=== PATIENT | male | born 1950 | race Caucasian/White ===

== ENCOUNTER → 2023-07-17 09:44 | Outpatient (REF) | payer OTHER, SELFPAY | LOC: MRI 3T 09:44 | PROVIDERS: ATTENDING PHYSICIAN Specialist; FAMILY PHYSICIAN Internal Medicine | DX: R97.20 Elevated prostate specific antigen [PSA] (principal) | CPT/HCPCS: 72197; A9575 ==

== ENCOUNTER 2023-12-23 06:17 | Inpatient (IN) | payer OTHER, SELFPAY ==
[2023-12-23] VITALS (26 sets, daily range): BP systolic 120–162; BP diastolic 63–138; BMI 25.1; BMI 24.9
[2023-12-23] MEDS: ATIVAN 1 MG IV ×5 (04:09→12:48)
[2023-12-23] MEDS: THIAMINE INJECTION 200 MG IV ×3 (04:09→16:12)
[2023-12-23] MEDS: NSS 1000 IV (04:10)
[2023-12-23 04:12] LABS: Venous Blood Gas B.E. -10.1 mmol/L (-4 to +4); Venous Blood Gas HCO3 12.4 mmol/L (22-27); Venous Blood Gas O2 Sat % 99.8 %; Venous Blood Gas pCO2 20 mmHg (35-48); Venous Blood Gas pO2 158 mmHg (30-50)
[2023-12-23 04:14] LABS: Venous Blood Gas O2 Therapy 2L
[2023-12-23 04:19] LABS: % Basophils 0.6 % (0-2); % Eosinophils 0.1 % (0-6); % Immature Granulocytes 0.3 % (0-0.5); % Lymphocytes 19.1 % (20.5-51.1); % Monocytes 10.2 % (1.7-9.3); % Neutrophils 69.7 % (42.2-75.2); Absolute Basophils 0.1 10^3/uL (0-0.2); Absolute Lymphocytes 2.1 10^3/uL (1.2-3.4); Absolute Monocytes 1.1 10^3/uL (0.1-0.6); Absolute Neutrophils 7.7 10^3/uL (1.4-6.5); Hematocrit 35.2 % (39.0-52.0); Hemoglobin 12.6 g/dL (13.0-18.0); Mean Corp Hgb Conc. 35.8 g/dL (33.0-37.0); Mean Corpuscular Volume 86.5 fL (80.0-94.0); Mean Platelet Volume 9.1 fL (7.4-10.4); Nucleated Red Blood Cells % 0 % (-); Platelet Count 195 10^3/uL (130-400); Red Blood Cell Count 4.07 10^6/uL (4.70-6.10); Red Cell Dist. Width 18.1 % (11.5-14.5); White Blood Cell Count 11.1 10^3/uL (4.8-10.8)
[2023-12-23 04:25] LABS: INR 1.24; PT 15.5 Sec (11.4-14.6)
--- NOTE | 2023-12-23 04:31 | ED.GENMED ---
History of Present Illness
General
Chief Complaint: Alcohol Problem
Time Seen by Provider: 12/23/23 03:50
History of Present Illness
History of Present Illness:
73-year-old male with history of alcohol abuse presenting to the emergency department for concern of alcohol withdrawal. Patient reports that he has been struggling with alcohol abuse, and decided to stop drinking on Friday, 3 days ago.
Yesterday he did drink some mouthwash,, however has otherwise not had any alcohol. He has since had a lot of tremulousness, nausea, anxiousness. He has not been eating and has had occultly tolerating food and liquid by mouth. Denies chest pain or
difficulty breathing. Denies fever. Denies SI or HI. Denies inpatient treatment for alcoholism in the past. Denies vomiting or hallucinations. Denies additional acute medical complaints
Past History
Past History
ED Past Medical History: Hypercholesterolemia and Other (Diverticulitis)
ED Past Surgical History: Other (Hernia repair)
Social History
Tobacco: Non-smoker
Alcohol: Daily
Drug: None
Personal:
Living: with family
Employment: Employed
Family History
Family History: Other (kidney stones)
Phy Exam
Physical Exam
Physical Exam:
General: Anxious
HEENT: protecting airway
Neck: appears supple
CV: Tachycardic, regular rhythm, no evidence of cyanosis
Resp: No accessory muscle use, no increased work of breathing, lungs clear to auscultation bilaterally
Abd: Soft and non-distended, no tenderness to palpation
Extremities: No deformities, no swelling, no erythema
Neuro: alert, no focal neurologic deficit. Tremulous
: deferred
Rectal: deferred
Psych: Normal affect
Skin: Intact
Scores
Withdrawal Assessment of Alcohol
Withdrawal Assessment Completed?: Yes
Nausea and Vomiting: Mild nausea with no vomiting
Tactile Disturbances: None
Tremor: Severe, even with arms not extended
Auditory Disturbances: Not present
Paroxysmal Sweats: Beads of sweat obvious on forehead
Visual Disturbances: Not present
Anxiety: Moderately anxious, or guarded, so anxiety is inferred
Headache, Fullness in Head: Not present
Agitation: Moderately fidgety and restless
Orientation and clouding of sensorium: Oriented and can do serial additions
Total CIWA Score: 20
Alcohol Withdrawal Medication Recommendation: Equal to MSAS >11. Lorazepam 2-4mg IV NOW and re-assess q1hr
Course
Orders/Labs/Results
Orders:
Orders
12/23/23 04:01
Urinalysis Reflex To Culture Urgent
Date Specimen was Collected: 12/23/23
Time Specimen was Collected: 04:21
Urine Drug Abuse Screen Urgent
Date Specimen was Collected: 12/23/23
Time Specimen was Collected: 04:21
Thiamine Injection 200 mg IV NOW STA
12/23/23 04:02
Lorazepam [Ativan] 1 mg IV NOW STA
12/23/23 04:03
0.9% Sodium Chloride 1000 ml [Nss] 1,000 ml IV BOLUS
12/23/23 04:06
Alcohol Urgent
Complete Blood Count/With Diff Urgent
Comprehensive Metabolic Panel Urgent
Magnesium Urgent
Phosphorus Urgent
Prothrombin Time Urgent
Venous Blood Gas Urgent
%Oxygen/Room Air: 21
12/23/23 05:08
FOLic ACID [Folvite] 1 mg 0.9% Sodium Chloride 50 ml [Nss] 50 ml IV NOW
Abnormal Lab Results
12/23/23
04:06
WBC 11.1 H 10^3/uL
(4.8-10.8)
RBC 4.07 L 10^6/uL
(4.70-6.10)
Hgb 12.6 L g/dL
(13.0-18.0)
Hct 35.2 L %
(39.0-52.0)
RDW 18.1 H %
(11.5-14.5)
Absolute Neuts (auto) 7.7 H 10^3/uL
(1.4-6.5)
Absolute Monos (auto) 1.1 H 10^3/uL
(0.1-0.6)
Lymphocytes % 19.1 L %
(20.5-51.1)
Monocytes % 10.2 H %
(1.7-9.3)
PT 15.5 H Sec
(11.4-14.6)
VBG pCO2 20 L mmHg
(35-48)
VBG pO2 158 H mmHg
(30-50)
VBG HCO3 12.4 L mmol/L
(22-27)
Carbon Dioxide 9 L* mmol/L
(22-30)
Glucose 141 H mg/dl
(70-99)
Magnesium 1.4 L mg/dl
(1.6-2.3)
12/23/23 04:06
12/23/23 04:06
Vital Signs
Initial and Last Documented VS:
Initial Vital Signs
Temp Pulse Resp BP Pulse Ox
98.9 F 125 28 162/90 95
12/23/23 03:51 12/23/23 03:51 12/23/23 03:51 12/23/23 03:51 12/23/23 03:51
Last Documented Vital Signs
Temp Pulse Resp BP Pulse Ox
98.9 F 109 28 162/90 98
12/23/23 03:51 12/23/23 04:01 12/23/23 04:01 12/23/23 04:01 12/23/23 04:01
MDM/Problems Addressed
MDM/Problems Addressed:
73-year-old male with history of alcohol abuse presenting for concern of alcohol withdrawal. Vital signs on arrival significant for tachycardia and hypertension.
On exam, patient is in no acute distress, however appears very anxious, tremulous, shaky. Symptoms appear consistent with alcohol withdrawal. Patient admits to some mouthwash yesterday, however reports low volume. Lower suspicion for significant
toxic alcohol ingestion. Patient denies any SI or HI. CIWA score is 20 indicating acute alcohol withdrawal. Will obtain laboratory analysis and administer thiamine, folate, IV fluids. Will administer IV benzodiazepines and reassess for
improvement
05:10 -on reassessment, patient is slightly improved, however remains tremulous. Labs relatively unremarkable. Feel patient warrants admission for alcohol withdrawal. Will redose Ativan. Patient agreeable to staying.
*Critical Care Note
Total Time (30-74mins, 75-104mins- exclusive of procedures): Not Applicable
ED Attending Note
-
Portions of this chart may have been created with voice recognition software.� Occasional wrong word or��sound alike� substitutions may have occurred due to the inherent limitations of voice recognition software.
Discharge Plan
Departure
Prescriptions:
No Action
aspirin 81 MG tablet,delayed release (DR/EC)
81 mg PO DAILY
multivitamin with folic acid [Tab-A-Alexa] 1 TABLET tablet
1 tab PO DAILY
Patient Comments:
simvastatin [Zocor] 40 mg Tablet
40 mg PO DAILY
sertraline 50 mg Tablet
50 mg PO DAILY
Referrals:
Ehsan Yi MD [Family Provider] -
Interventions
Interventions:
*Risk Screen - Suicide Last Done: 12/23/23 03:51
*General Assessment Last Done: 12/23/23 03:51
*Neglect/Abuse Screening Last Done: 12/23/23 03:51
ED- Fall Risk Assessment Last Done: 12/23/23 04:22
*ED COVID-19 Vaccine History Last Done: 12/23/23 03:51
ED- Neurological Assessment Last Done: 12/23/23 04:22
ED-Psychological Assessment Last Done: 12/23/23 04:22
Discharge Date and Time
Print Language: MALAY
[2023-12-23 04:49] LABS: ALT (SGPT) 30 U/L (0-50); AST (SGOT) 52 U/L (17-59); Albumin 4.5 g/dl (3.5-5.0); Alcohol 58 mg/dl; Alkaline Phosphatase 75 U/L (38-126); Blood Urea Nitrogen 12 mg/dl (9-20); Calcium 9.3 mg/dl (8.4-10.2); Carbon Dioxide 9 mmol/L (22-30); Chloride 107 mmol/L (98-107); Estimated Creatinine Clearance 91 ml/min; Glucose 141 mg/dl (70-99); Magnesium 1.4 mg/dl (1.6-2.3); Phosphorus 3.7 mg/dl (2.5-4.5); Potassium 3.5 mmol/L (3.5-5.1); Sodium 143 mmol/L (135-145); Total Protein 7.1 g/dl (6.3-8.2); eGFR > 60.00
[2023-12-23] MEDS: FOLVITE 50.2 MG IV (05:20)
--- NOTE | 2023-12-23 06:07 | HPS.HSE ---
Family Physician
-
Family Physician: Ehsan Yi
Chief Complaint
-
Nausea, Jittery
History of Present Illness
Patient is a 73y M with PMH significant for GERD and depression who presents to ED complaining of nausea and feeling jittery after drinking aftershave this evening. Patient states that he has a long history of alcohol overuse and cites multiple
interpersonal stressors as contributing to this. He notes that he typically drinks about 1 pint of liquor per day. His last drink of standard alcohol was reportedly on Friday. He had no alcohol Friday and most of Friday. Patient states that he
had a visit with one of his son's this evening that was stressful and upsetting. He was having trouble sleeping following this, and drank a small bottle of aftershave in an attempt to settle his nerves and get to sleep. He did not sleep and, in
fact, began to be quite concerned about the effects of the aftershave.
He felt nauseated but did not have emesis. He presented to the ED for further evaluation.
Patient is anxious and restless here in the ED.
He denies any other significant medical issues.
Medical History
Past Medical History
Past Medical History: Reports Other
Additional Past Medical History:
GERD
Depression / Anxiety
Prostatic Intraepithelial Neoplasia III
Dyslipidemia
Past Surgical History: Reports Other
Additional Past Surgical History:
Prostate Biopsy x 3
Hernia Repair
T&A
Social History
Tobacco: Vaping (Daily vape use. Prior cigarettes - quit cigarettes 12 years ago.)
Alcohol: Daily (1 pint of liquor daily. )
Drug: None
Family History
Family History: Not pertinent
Allergies / Home Medications
Allergies reflects when Allergies were last updated in [facility].
Home Medications with original date entered in [facility]
Allergy/Medication List:
Allergies
Allergy/AdvReac Type Severity Reaction Status Date / Time
No Known Allergies Allergy Verified 12/23/23 04:02
Home Medications
aspirin 81 mg tablet,delayed release 81 mg PO DAILY 08/02/10
multivitamin with folic acid 400 mcg tablet (Tab-A-Alexa) 1 tab PO DAILY 08/02/10
simvastatin 40 mg tablet (Zocor) 40 mg PO DAILY 06/11/22
Review of Systems
-
History Source: Patient
A 12 point ROS was completed and negative except as noted: Yes
Constitutional: Reports Fatigue; Denies Fever or Chills
EENT: Denies Sore Throat
Respiratory: Denies Cough or Trouble Breathing
Cardiac: Denies Chest Pain or Palpitations
Abdomen/GI: Reports Nausea and Anorexia; Denies Abdominal Pain, Vomiting or Diarrhea
: Denies Dysuria, Frequency or Flank Pain
Musculoskeletal: Denies Joint Pain or Edema
Neurological: Denies Dizzy or Headache
Psych: Reports Depression and Anxiety
Physical Exam
Vital Signs
Vital Signs
Temp Pulse Resp BP Pulse Ox
98.9 F 109 28 162/90 98
12/23/23 03:51 12/23/23 04:01 12/23/23 04:01 12/23/23 04:01 12/23/23 04:01
Physical Exam
General: Other (73y M somewhat restless / anxious in the ED.)
HEENT: Moist mucous membranes, PERRLA and Other (Pos horizontal nystagmus.)
Respiratory: Other (Scattered squeaks and wheezes. No focal rhonchi.)
Cardiac: S1/S2, Tachycardia and Murmur (II/ SMILEY)
GI: Soft, Non Tender, Non Distended and Normal Bowel Sounds
Musculoskeletal: No Clubbing, No Cyanosis and No Edema
Neuro: AO x 3 and Other (Mildly tremulous.)
Psych: Anxious
Laboratory Results
-
12/23/23 04:06
12/23/23 04:06
Laboratory Results
PT 15.5 Sec (11.4-14.6) H 12/23/23 04:06
INR 1.24 12/23/23 04:06
Total Bilirubin 1.0 mg/dl (0.2-1.3) 12/23/23 04:06
AST 52 U/L (17-59) 12/23/23 04:06
ALT 30 U/L (0-50) 12/23/23 04:06
Alkaline Phosphatase 75 U/L (38-126) 12/23/23 04:06
Impression/Plan
-
A/P: Patient is a 73y M with PMH significant for alcohol use disorder and depression who presents to ED for evaluation after drinking aftershave lotion this evening.
Anion Gap Metabolic Acidosis
Alcohol Use Disorder
Atypical Alcohol Ingestion
Alcohol Withdrawal Syndromes
- Admit to IMU for further evaluation and treatment.
- Initial anion gap is elevated at 27. Serum osmolarity is pending.
- Aftershave typically contains isopropyl alcohol (which does not usually cause anion gap acidosis) or ethyl alcohol. Not ethylene glycol, etc.
- However, if osmolar gap is also markedly elevated, would consider treatment with fomepizole.
- Otherwise, this is likely alcoholic ketoacidosis.
- IVFs / supplemental dextrose.
- Follow labs / lytes and adjust IVFs as needed.
- Follow for normalization of anion gap.
- Continue thiamine, folate, MVI replacement, etc.
- Phenobarb taper +/- Ativan PRN for withdrawal symptoms.
- Follow for clinical improvement.
Anxiety / Depression
- Poorly controlled.
- Patient states that he was taken off of sertraline 'because it can be addictive'?
- Would clearly benefit from some antidepressant / anxiolytic therapy.
- Psych evaluation.
DVT Prophylaxis: SCDs
Code Status: Full
[2023-12-23 07:11] LABS: B-Hydroxybutyrate 0.73 mmol/L (0.02-0.27)
[2023-12-23] MEDS: NSS (PRESERVATIVE FREE) 0.5 ML IV ×4 (07:50→14:07)
[2023-12-23] MEDS: PHENOBARBITAL 97.5 MG IV ×2 (07:53→21:00)
[2023-12-23] MEDS: PROTONIX IV 40 MG IV (07:54)
[2023-12-23] MEDS: NSS (PRESERVATIVE FREE) 10 ML IV (07:54)
[2023-12-23] MEDS: FOLVITE 1 MG PO (07:55)
[2023-12-23] MEDS: D5LR 1000 IV ×2 (07:56→16:11)
[2023-12-23] MEDS: MAGNESIUM SULFATE 50 IV (07:56)
--- NOTE | 2023-12-23 08:35 | PTCARENOTE ---
Rec'd pt on admission from ED. Pt admitted with ETOH w/d. presented with marked tremors, tachy, MSAS 8, see MAR. Pt oriented x3 at this time. meds given as ordered. Updated Dr. Pricthett and residents at bedside.
[2023-12-23 10:11] LABS: Urine Albumin Trace (Neg - Trace); Urine Bilirubin Negative (Negative); Urine Character Clear (Clear); Urine Color Yellow; Urine Glucose Negative (Negative); Urine Ketone 1+ (Negative); Urine Leukocyte Trace (Negative); Urine Nitrite Negative (Negative); Urine Occult Blood 3+ (Negative); Urine Specific Gravity 1.025 (<1.030); Urine Urobilinogen Negative (Neg - 1+)
[2023-12-23] MEDS: ATIVAN 1 MG PO (10:20)
[2023-12-23 10:28] LABS: Amphetamines Negative (Negative); Barbiturates Negative (Negative); Benzodiazepines Positive (Negative); Buprenorphine Negative (Negative); Cocaine Negative (Negative); Marijuana Negative (Negative); Methadone Negative (Negative); Methamphetamines Negative (Negative); Opiates Negative (Negative); Phencyclidine Negative (Negative); Tricyclic Antidepressants Negative (Negative)
[2023-12-23 10:41] LABS: Urine Bacteria Few (Negative); Urine Mucus Few
[2023-12-23 10:42] LABS: Urine Red Blood Cell 0-2 /HPF (0-2); Urine White Cell 0-2 /HPF (0-5)
[2023-12-23 10:45] LABS: Fentanyl, Urine Negative (Negative)
--- NOTE | 2023-12-23 11:18 | CON.MD ---
Consultation - Medical
-
patient seen chart reviewed. spoke with nursing. the patient is a 73 year old male who is known to this service writer advisor. he was seen for a 302 assessment in 2022. at that time a 302 petition had been filed by his therapist . his ex had alleged he had
expressed si. his son had been involved in supplying drugs to a peer who and son was facing [facility]. (son is currently in [facility] for six years). patient was intoxicated at the time. when he sobered up and was interviewed by this service writer advisor he was
released and was not hospitalized. he continued to drink. he reports he drinks a pint of vodka daily. a few weeks ago he had a sober week but his other son he says triggers him by his anger, stealing etc. he is also stressed by his gf but
acknowledges some of the stress comes from his drinking. he came to the er for fear of etoh wd. this past sat he stopped drinking but admits he consumed mouth wash since then. bal on admit 58. he said he knows he needs to get sober. he no longer
has a therapist as insurance changes. he is depressed. he had a period where he took zoloft and feels it helped him. he struggles to fall and stay asleep appetite not good. feels lost 30 lbs. he does not enjoy much. liked to golf...not any more.
energy level is poor. he tells me he has no si but nsg says he made some vaguely suicidal comments this am then denied them. there is nothing to suggest psychosis now. sometimes when he is intox he may see 'my gf out of the corner of my eye'
denies hx of dt's and sz although he is quite tremulous now. he has received so far two doses of ativan as per msas and is on phenobarb taper.
past psych see above no stays in rehabs or iop's
medical hx noted mild anemia hypomg 1.4 fbs pending ua and tox pending lft's ok patient w hx prostate ca hld bladder stones and diverticulosis bp p elevated afebrile
fh son w addiction issues another son w anger issues
substance abuse see above
social . lives w gf. conflicted relationship. 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
mse alert ox3 cooperative very tremulous speech and thought process nl affect appropriate mood is dysphoric see above aver intelligence no psychosis insight judgment not good
dx etoh use disorder severe etoh wd r/o depression
recommendations continue w msas and phenobarb taper. may need precedex eventually. nursing aware. assess re antidepressant when farther along in wd. bcares to see to find an out pt provider who is covered by his insurance. he really should do in
pt rehab but unlikely he will consent. 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 monitor re si...right now he is denying suicidality. patient does not have guns he apparently gave them away prior to when i saw him in 2022.
will follow
[2023-12-23 11:42] LABS: Blood Urea Nitrogen 11 mg/dl (9-20); Calcium 8.5 mg/dl (8.4-10.2); Carbon Dioxide 21 mmol/L (22-30); Chloride 106 mmol/L (98-107); Estimated Creatinine Clearance 106 ml/min; Glucose 130 mg/dl (70-99); Potassium 3.6 mmol/L (3.5-5.1); Sodium 141 mmol/L (135-145); eGFR > 60.00
[2023-12-23 12:50] LABS: Osmolality Serum 311 mOsm/kg (275-300)
[2023-12-23] MEDS: ATIVAN 2 MG IV (14:07)
--- NOTE | 2023-12-23 14:25 | W.PN.HOSP.TC ---
Addendum entered and electronically signed by Georgina Pritchett MD 12/23/23 15:47:
I saw and evaluated the patient independently. I reviewed the resident�s note and agree with findings and plan as documented by Dr. Nicholas.
GENERAL: well developed, well nourished, male in no apparent distress--slightly drowsy since received IV ativan when we saw him
HEENT: NC/AT--no O2 requirements
HEART: regular rate and rhythm, +S1, +S2--tachycardic
LUNGS : clear to auscultation bilaterally
ABDOM: soft, nontender, nondistended, + bowel sounds
EXT: no cyanosis, clubbing, or edema
NEUROLOGIC: tremulous, shaky
: condom cath in place
Acute alcohol withdrawal with impending delirium tremens--pt drinks 1 pint of vodka daily--cont MSAS--patient very tremulous and shaky, low threshold to move to intensive care unit for higher level of care and need for possible Precedex
treatment--agree with psychiatry consult--doubt patient will want help--continue IV thiamine and folate repletion--follow and replete magnesium and potassium
Anion Gap Metabolic Acidosis--likely due to alcoholic ketoacidosis--osmole gap normal despite ingestion of mouthwash and aftershave--continue IV fluids--would not give IV bicarbonate at this time--follow for resolution of acidosis as DTs are treated
Anxiety / Depression--patient admits to depression--will continue sertraline--agree with psychiatry consult
DVT Prophylaxis: SCDs
Code Status: Full
Original Note:
Today's Communication/Plan
-
.
Assessment / Plan
Assessment / Plan
1. Anion Gap Metabolic Acidosis
- AGAP = 27 last night; 14 this morning.
- Serum osmolality = 311 last night; Calculated osmolality = 311-314; normal osmolal gap
- Alcohol quant = 58 last night. Rest of Tox screen negative (benzo positive, given ativan on admission)
- Follow CMPs for normalization.
2. Alcoholic Ketoacidosis/Withdrawal
- B-hydroxybutyrate 0.73
- IVF/supplemental dextrose.
- Thiamine, Folate, multivitamin.
- Phenobarbital Taper with Ativan PRN for withdrawal sx.
- Reassess for clinical signs.
- CIWA 20 this morning; recheck in AM.
- Low threshold for ICU transfer; pt may need Precedex; nursing aware.
3. Hypomagnesemia
- 1.4 this morning. Repleted 2g.
- Recheck Mg + PO4 in morning with CMP.
4. Anxiety/Depression
- Psych evaluation. To reassess antidepressant when further along in withdrawal.
Anticipated Discharge: 24 - 48 hours
Subjective/Interval History
-
Date of Service: December 23, 2023
Records and notes reviewed.
Pt notes that he has a long history of alcohol use disorder, with anxiety and depression, as well as multiple interpersonal stressors contributing. Pt admits to drinking 1 pint of liquor per day, and EtOH of choice is vodka. He report his last drink
was on Friday, but that since then he felt the need to drink mouthwash and aftershave in order to fall asleep. However he began to feel nervous and presented to ED. Pt notes that he feels safe at home, but notes his son has an anger problem.
This morning he notes that his hand tremors are mildly improved from admission. Nurse also endorses the patient is less tremulous than admission. Pt denies nausea, vomiting, chest pain, SOB, or visual hallucinations at this time.
Objective Data
-
Labs:
Laboratory Results
12/23/23 12/23/23
04:06 11:01
WBC 11.1 H
Hgb 12.6 L
Hct 35.2 L
Plt Count 195
PT 15.5 H
INR 1.24
Sodium 143 141
Potassium 3.5 3.6
Chloride 107 106
Carbon Dioxide 9 L* 21 L
BUN 12 11
Creatinine 0.7 0.6 L
Glucose 141 H 130 H
Calcium 9.3 8.5
Total Bilirubin 1.0
AST 52
ALT 30
Alkaline Phosphatase 75
Vital Signs:
Vital Signs
Temp Pulse Resp BP Pulse Ox
98.1 F 109 30 156/93 96
12/23/23 11:24 12/23/23 08:00 12/23/23 08:00 12/23/23 08:00 12/23/23 08:00
I&O
12/22/23 12/23/23 12/24/23
06:59 06:59 06:59
Output Total 100 / 100
Balance -100 / -100
Review of Systems
-
History Source: Patient
Constitutional: Reports Sleep Disturbance
Respiratory: Reports No Symptoms
Cardiac: Reports No Symptoms
Abdomen/GI: Reports No Symptoms
Musculoskeletal: Reports Other (tremors, upper extremities bilaterally)
Skin: Reports No Symptoms
Neuro: Reports No Symptoms
Psych: Reports Depressed
Physical Exam
-
General: Appears in Distress and Other (tremulous)
HEENT: Normocephalic and Atraumatic
Respiratory: Clear to Auscultation
Cardiac: S1/S2 and Tachycardic
GI: Soft, Nontender and Nondistended
Musculoskeletal: No Edema
Neuro: Awake and Tremors
Psych: Anxious
Data Reviewed
-
Labs: Labs Reviewed by me
--- NOTE | 2023-12-23 15:00 | PTCARENOTE ---
Rec'd pt this AM on admisson from ED. At 0900 pt was AAO x3 but tremulous, admits to drinking heavily daily. Pt expressed to RN that he is fearful of his song Mickey Freire Jr. stating he comes to his house and is aggressive, steals from him as he
has sub abuse issues. CM and Dr. Holcomb notified. Pt MSAS has progressed throughout shift from 4-12. Ativan PRN ineffective at this time. Pt is attempting to climb OOB, hallucinating, becoming more confused,unaware of where he is much of the time.
Notified Dr. Pritchett and Dr. Nicholas. Pt will be ugraded to ICU and transferred to 336. In addition, RN rec'd phone call from a person claiming to be Officer Zeus from [facility] and asking to verify if pt is at . RN explained that no info
can be given out over the phone to unkown people. his contact info provided to Mayi Kay from [employer]. 30 min later, Pt's son Mickey Boswell called He was agitated, demanding to have info about his father. Pt was clear he only wanted info
released to his sig other, Catarina. Son demandning to visit pt. Pt stated son can only come for 5 minutes as he tends to 'fly off the handle'. Security, Mayi Brownign, Mayi Kay and superivisor notified. Security will be on the floor when son
arrives and ensures he leaves after a short visit. HARNESS RIGGER also updated.
--- NOTE | 2023-12-23 15:13 | W.PN.UPDATE ---
Update Note
Progress Note Update
Contacted by nurse in IMU. MSAS was 8 this morning, and increased to 12 now. Pt receiving Ativan every hour and starting to have confusion, paranoia, delusions/visual hallucinations. Per nurse the patient is asking for papers that do not exist, and
picked up an object from his table and thought it was a phone. Patient was seen and examined. No complaints at this time per patient. Alert and oriented x 3. Mildly tachycardic, no acute respiratory distress, clear to auscultation bilaterally,
benign abdominal exam. Continues to be tremulous. Patient was calm during examination, but actively trying to get out of bed after I left the room. Noted that patient was directable by the virtual monitoring system and would return his legs into
the bed. Patient to be transferred to the ICU for [id number] monitoring and potential use of Precedex.
--- NOTE | 2023-12-23 16:03 | CON.INTV ---
Consultation
Consultation Request
Date/Time Consultation Requested: 12/22
Date/Time Consultation Performed: 3:30
Medical History
-
Chief Complaint: Alcohol withdrawal
History of Present Illness:
Patient is a 73yo M with known history of depression/anxiety and alcohol use disorder who presented to the ED at 3 AM complaining of nausea, tremulousness, and anxiety. Patient is a frequent drinker and typically drinks about 1 pint of vodka every
day. Patient attempted to stop drinking last weekend. Last drink was on Friday. He admits to drinking a small bottle of of aftershave on Friday evening to make him calm after a stressful visit with his son. Patient became more stressed overnight
and became concerned about intoxication. In the ED, his vital signs were: BP 162/90, HR 125, RR 28. He was conscious, alert and saturating well on room air. CIWA score was 20 on admission. Anion Gap Metabolic Acidosis present on admission
(AG=27). Patient was placed on MSAS protocol and Ativan PRN given. He was initially admitted to IMU, however, his symptoms including tremulousness and delirium tremens were not controlled with Ativan and phenobarb. Patient started developing
confusion, paranoia, delusions/visual hallucination despite receiving Ativan q1h. MSAS increased from 8 to 12. Patient was transferred to the ICU for closer monitoring and possible need for Precedex gtt.
At this time in the ICU, patient denies feeling nauseous. Denies chest pain/abdominal pain. Denies suicidal thoughts. States he is feeling a bit cold.
Is alert and oriented to time, place, person. Is a bit drowsy (just received a dose of Ativan). Does have moderate generalized tremors. Mildly tachycardic, no acute respiratory distress (saturating well on room air), clear to auscultation
bilaterally, benign abdominal exam.
Past Medical History
Past Medical History: Cancer (Prostatic Intraepithelial Neoplasia III ), GERD, Hypercholesterolemia and Other (See above)
Past Surgical History: Urological (Hernia repair, prostate biopsy)
Social History
Tobacco: Other (Vapes daily, quit cigarette smoking 12 years ago)
Alcohol: Chronic Alcoholic (Last drink was on Friday. Drank a bottle of aftershave Friday evening)
Drug: None
Personal: Partner
Family History
Family History: Reviewed & Not Pertinent
Allergies / Home Medications
Allergies
Allergy/AdvReac Type Severity Reaction Status Date / Time
No Known Allergies Allergy Verified 12/23/23 04:02
Home Medications
�Medication �Instructions �Recorded �Confirmed �Last Taken �Type
aspirin 81 mg tablet,delayed 81 mg PO DAILY 08/02/10 12/23/23 06/17/18 08:00 History
release
multivitamin with folic acid 400 1 tab PO DAILY 08/02/10 12/23/23 08/01/10 History
mcg tablet (Tab-A-Alexa)
simvastatin 40 mg tablet (Zocor) 40 mg PO DAILY 06/11/22 12/23/23 Unknown History
Review of Systems
-
Unable to Obtain full review of systems at this time due to: Other (See HPI)
All other systems: Negative unless noted
Vitals / Labs / Diagnostic Testing
Vital Signs
Temp Pulse Resp BP Pulse Ox
97.6 F 108 21 137/72 96
12/23/23 15:33 12/23/23 14:01 12/23/23 14:01 12/23/23 14:01 12/23/23 14:01
Lab Data
12/23/23 04:06
12/23/23 11:01
Laboratory Results
12/23/23
04:06
PT 15.5 H
INR 1.24
Diagnostic Testing:
Physical Exam
-
HEENT: Normocephalic, Anicteric and Other (Dry mucous membranes, nystagmus absent)
Cardiovascular: S1/S2, Regular Rhythm, Murmur (n), Peripheral Edema (n) and JVD (n)
Respiratory: Clear, Wheeze (n), Rales (n) and Other (Slightly tachypneic, saturating well on room air)
GI: Soft, Non Distended, Non Tender and Normal Bowel Sounds
Neurology: Awake (Feeling a bit drowsy), Alert, Oriented and Tremors (Generalized tremulousness)
Skin: Dry
Assessment
-
Patient is a 73y M with PMH significant for alcohol use disorder and depression who presents with alcohol withdrawals symptoms.
Alcohol Withdrawal Syndrome in the setting of Alcohol Use Disorder
- Urine screen positive for benzo and b-hydroxybutyrate
- Anion gap is elevated at 14 this a.m. Serum osmolarity close to normal. Suggests alcoholic ketoacidosis.
- Continue IVF treatment with Dextrose/RL
- Continue MSAS
- Currently held off of Precedex- Will Start at a rate of 0.2 if clinical condition escalates
- Continue phenobarb, Ativan PRN
- Closely monitor BMP and anion gap
- Monitor clinical improvement
- May advance diet as tolerated
# hx of Anxiety/Depression
-Appreciate psych consult
# GERD
- Cont Protonix 40 IV
DVT Prophylaxis
- SCDs
Code Status: Full
[2023-12-23] MEDS: PHENOBARBITAL 104 MG IV (16:10)
--- NOTE | 2023-12-23 16:21 | PTCARENOTE ---
Pt rec'd as transfer from IMU into ICU 3369 for increasing agitation d/t ETOH w/d. Plan of care discussed with IMU RN and cattle killer at bedside, will give loading dose of Phenobarb and consider Precedex. Orders rec'd. MSAS score at 16:00 8 with
RASS of -1. Phenobarb gtt hung at 16:10, see MAR. Pt pleasantly confused, can be intermittently restless vs drowsy. Bed alarm armed, Medsitter in place. Safe environment maintained.
--- NOTE | 2023-12-23 17:34 | PTCARENOTE ---
Pt sleeping when undisturbed. VSS, safe environment maintained. Medsitter and bed alarm in place.
--- NOTE | 2023-12-23 17:51 | PTCARENOTE ---
Pt's son called to say he will be arriving to visit around 7:30 pm. He was reminded that the patient only agrees to a 5 minute visit from him. Security updated by phone.
[2023-12-23] MEDS: LOVENOX 40 MG SC (18:10)
--- NOTE | 2023-12-23 20:40 | PTCARENOTE ---
Received patient AAOx2, drowsy/confused, reoriented. MSAS Q2 per protocol, see flowsheets. Patient following commands, denying pain. Normal sinus/sinus tach, 80s-100s. BP stable, 130s-140s/80s-90s, normothermic, palpable radial and pedal pulses b/l,
no edema. 99% on room air, lung sounds clear, diminished at the bases. Clear liquid diet, hyperactive bowel sounds, no BM yet this shift. #[address] draining yellow/najma urine. Bruise on left elbow and scab on right el POA. PIVs
patent, WNL. IVF ongoing per protocol. Medsitter ongoing, bed alarm on. Hourly rounding and patient safety checks ongoing.
[2023-12-23 21:36] LABS: Blood Urea Nitrogen 8 mg/dl (9-20); Calcium 8.4 mg/dl (8.4-10.2); Carbon Dioxide 22 mmol/L (22-30); Chloride 105 mmol/L (98-107); Estimated Creatinine Clearance 106 ml/min; Glucose 111 mg/dl (70-99); Magnesium 1.8 mg/dl (1.6-2.3); Potassium 3.3 mmol/L (3.5-5.1); Sodium 138 mmol/L (135-145); eGFR > 60.00
[2023-12-23] MEDS: KCL ELIXIR 40 MEQ PO (21:57)
[2023-12-23] MEDS: MAGNESIUM SULFATE 102 GRAMS IV (21:57)
[2023-12-24] VITALS (17 sets, daily range): BP systolic 112–146; BP diastolic 64–97; PULSE 79–82; O2SAT 96–97; BMI 25.7
--- NOTE | 2023-12-24 00:02 | PTCARENOTE ---
Mag and potassium repleted, otherwise patient assessment unchanged from previous. Hourly rounding and patient safety checks ongoing.
[2023-12-24] MEDS: D5LR 1000 IV (00:03)
[2023-12-24] MEDS: THIAMINE INJECTION 200 MG IV ×4 (00:12→23:50)
--- NOTE | 2023-12-24 04:12 | PTCARENOTE ---
Patient more awake, RASS 0 to -1, reoriented easily. Otherwise patient assessment unchanged from previous, hourly rounding and patient safety checks ongoing. Labs sent, CHG bath done, repositioned.
[2023-12-24 04:15] LABS: Hematocrit 30.8 % (39.0-52.0); Hemoglobin 10.8 g/dL (13.0-18.0); Mean Corp Hgb Conc. 35.1 g/dL (33.0-37.0); Mean Corpuscular Hgb 30.9 pg (27.0-31.0); Mean Platelet Volume 9.5 fL (7.4-10.4); Platelet Count 109 10^3/uL (130-400); Red Cell Dist. Width 17.4 % (11.5-14.5); White Blood Cell Count 7.7 10^3/uL (4.8-10.8)
[2023-12-24 04:42] LABS: ALT (SGPT) 24 U/L (0-50); AST (SGOT) 40 U/L (17-59); Albumin 3.5 g/dl (3.5-5.0); Alkaline Phosphatase 55 U/L (38-126); Blood Urea Nitrogen 6 mg/dl (9-20); Calcium 8.6 mg/dl (8.4-10.2); Carbon Dioxide 19 mmol/L (22-30); Chloride 107 mmol/L (98-107); Direct Bilirubin 0.3 mg/dl (0.0-0.4); Estimated Creatinine Clearance 106 ml/min; Glucose 145 mg/dl (70-99); Magnesium 1.9 mg/dl (1.6-2.3); Phosphorus 2.4 mg/dl (2.5-4.5); Potassium 3.8 mmol/L (3.5-5.1); Sodium 138 mmol/L (135-145); Total Bilirubin 1.8 mg/dl (0.2-1.3); eGFR > 60.00
--- NOTE | 2023-12-24 06:22 | PTCARENOTE ---
critical lab called [facility] ., PIN MACHINE TENDER and primary RN made aware
[2023-12-24] MEDS: PHENOBARBITAL 97.5 MG IV ×3 (08:26→21:44)
[2023-12-24] MEDS: FOLVITE 1 MG PO (08:27)
[2023-12-24] MEDS: NSS (PRESERVATIVE FREE) 10 ML IV (08:27)
[2023-12-24] MEDS: PROTONIX IV 40 MG IV (08:27)
[2023-12-24] MEDS: D5LR IV (08:35)
--- NOTE | 2023-12-24 09:08 | CM ---
late note from ; Patient seen at bedside with physicians in room. Patient stated that he lives with his girlfriend and oldest son comes and goes. Patient lives in a 2 story home with steps. Patient has no DME and PCP is Dr. Garsia and
he uses the [facility] in [place] in [facility]. Patient expressed concern about son's anger issues but stated he was safe at home. patient declined [facility] at this time and CM will return to review at a later time. Patient confirmed that he swallowed
mouthwash and aftershave to try to deal with alcohol use. Patient does vape not smoke confirmed heavy drinking. CM will continue to follow for discharge planning needs.
Plan; [facility]; follow for concerns regarding home situation; medical treatment plan
--- NOTE | 2023-12-24 10:06 | PTCARENOTE ---
pt awake and alert, confused to time. s/w intranet specialist to d/c fluids, move to telemetry and upgrade diet. VS WNL, pt offers no complaints. expressing desire to go home. consult PT/OT. CB in reach.
--- NOTE | 2023-12-24 10:14 | W.PN.INTV ---
Today's Communication / Plan
Recommendations
Advance diet to regular-discontinue IV fluids-continue to closely monitor vital signs, mental status and labs - Can be downgraded to telemetry
Assessment
-
Patient is a 73y M with PMH significant for alcohol use disorder and depression who presents with alcohol withdrawals symptoms.
Did not have any significant overnight events. No seizures. Remained slightly tachypneic but did not require supplemental oxygen. Vital signs were stable through the night. Not hypo or hypertensive. Not tachycardic. Normothermic.
Received 4 g Ativan in total. Last dose was 2 PM. Received phenobarb taper earlier this morning. Did not require Precedex during ICU stay.
On exam, he is awake, alert and oriented. No tremors. Was able to tolerate clear liquids. Denies nausea. Denies abdominal/epigastric pain.
#Alcohol Withdrawal Syndrome in the setting of Alcohol Use Disorder
- Anion gap is 12 this am.
- Hemodynamics stable overnight and now. Urine output is good. Is able to tolerate liquids. Will discontinue IVF
- Continue MSAS protocol (currently q4h)
- Continue phenobarb taper, Ativan PRN
- Did not require Precedex during ICU stay
- OT PT
- Continue to closely monitor VS, BMP and anion gap
- Continue to watch for any signs of agitation/hallucination
- May advance diet to regular
- Hypokalemia/hypomagnesemia-repleted
- Hypophosphatemia-anticipate improvement after patient starts eating
# Drop in hemoglobin and platelet count
- 4 T-score calculated (less than 5% risk for HIT).
- Most likely dilutional
- Will continue to trend CBC
# Elevated total bili
- No right upper quadrant tenderness
- Afebrile, white count normal
- LFT normal
- Most likely related to alcohol use disorder
# hx of Anxiety/Depression
-Appreciate psych consult
# GERD
- Cont Protonix
DVT Prophylaxis
- SCDs + Lovenox
Anion gap is normal. Electrolytes WNL. He did not require Precedex during ICU stay. Patient's clinical condition has significantly improved and near baseline. He is cleared for downgrade to telemetry from critical care standpoint.
Code Status: Full
Subjective Dataa
Subjective Data
Date of Service:
Date of Service: December 24, 2023
Subjective:
Patient states he is feeling much better than yesterday. Is awake, alert, oriented to time place person. Denies nausea. Has good appetite and is able to tolerate clear liquids. Tremulousness has improved. Hemodynamically stable
Review of Systems
General: Other (See above)
Objective Data
Data Reviewed
Vital Signs / I&O / Oxygen:
Vital Signs
Temp Pulse Resp BP Pulse Ox
98.3 F 73 23 126/73 95
12/24/23 07:03 12/24/23 08:00 12/24/23 08:00 12/24/23 08:03 12/24/23 08:00
Intake and Output
12/23/23 12/24/23 12/25/23
06:59 06:59 06:59
Intake Total 2046 / 2046
Output Total 1750 / 1750
Balance 297 / 297
SaO2 95
Physical Exam
General: Comfortable, Pain (n), Fever (n), Chills (n) and Good Appetite
HEENT: Normocephalic, Anicteric and Other (Speech clear, nystagmus absent)
Cardiovascular: S1-S2, Regular Rhythm, Murmur (n), Peripheral Edema (n) and Other (Not tachycardic)
Respiratory: Clear, Wheeze (n), Crackles (n), Non-Labored Respirations and Other (Saturating 95% on room air)
GI: Soft, Distended (Not had any bowel movement since admission), Non Tender, Normal Bowel Sounds and Other (Able to tolerate clear liquids )
Neurology: Awake, Alert, Oriented, AO x 3, No Motor Deficits and Tremors (Negative)
Skin: Warm and Dry
Labs/Micro/Reports
Lab Data
12/24/23 04:00
12/24/23 04:00
--- NOTE | 2023-12-24 10:36 | PTCARENOTE ---
med surg room assign. pt's son at bedside, pt in agreement to visit and to have nurse answer questions r/t care. frequent rounds. CB in reach
--- NOTE | 2023-12-24 11:29 | PTCARENOTE ---
report called to JoelW, pt working with PT and OT at present
--- NOTE | 2023-12-24 13:11 | CM ---
Patient seen at bedside with physicians. Patient stated that he did not have any issues at home, did not want referral to [facility] and needed to leave at the latest tomorrow due to work. CM will continue to follow for discharge planning needs.
Plan; home with no needs; watch for [facility] needs/willingness to talk
[2023-12-24] MEDS: MAGNESIUM OXIDE 500 MG PO (13:19)
--- NOTE | 2023-12-24 14:08 | W.PN.HOSP.TC ---
Addendum entered and electronically signed by Georgina Pritchett MD 12/24/23 16:55:
I saw and evaluated the patient independently. I reviewed the resident�s note and agree with findings and plan as documented by Dr. Nicholas.
GENERAL: well developed, well nourished, male in no apparent distress
HEENT: NC/AT--no O2 requirements
HEART: regular rate and rhythm, +S1, +S2--tachycardic
LUNGS : clear to auscultation bilaterally
ABDOM: soft, nontender, nondistended, + bowel sounds
EXT: no cyanosis, clubbing, or edema
NEUROLOGIC: tremulous, shaky improved
: condom cath in place
Acute alcohol withdrawal with impending delirium tremens--pt drinks 1 pint of vodka daily--cont MSAS--patient very tremulous and shaky, did move to intensive care unit for higher level of care and need for possible Precedex but did not
require--apprec psychiatry consult--doubt patient will want help--continue IV thiamine and folate repletion--follow and replete magnesium and potassium
Anion Gap Metabolic Acidosis--likely due to alcoholic ketoacidosis--osmole gap normal despite ingestion of mouthwash and aftershave--continue IV fluids--would not give IV bicarbonate at this time--follow for resolution of acidosis as DTs are treated
Anxiety / Depression--patient admits to depression--will continue sertraline--agree with psychiatry consult
DVT Prophylaxis: SCDs
Code Status: Full
suspect pt will leave tomorrow either AMA or by d/c pending tomorrow's evaluation--cont PT/OT--PT recommending SNF--OT rec home health
Original Note:
Today's Communication/Plan
-
.
Assessment / Plan
Assessment / Plan
1. Anion Gap Metabolic Acidosis
- AGAP = 12 this morning
- Serum osmolality = 311 on admission; Calculated osmolality = 311-314; normal osmolal gap
- Alcohol quant = 58 on admission. Rest of Tox screen negative (benzo positive, given ativan on admission)
- Follow CMPs for normalization.
2. Alcoholic Ketoacidosis/Withdrawal
- B-hydroxybutyrate 0.73
- IVF/supplemental dextrose.
- Thiamine, Folate, multivitamin.
- Phenobarbital Taper with Ativan PRN for withdrawal sx.
- Transferred to ICU last night, did not require Precedex. Pt improving and stable enough for transfer to telemetry.
- Reassess for clinical signs.
- Last MSAS = 2. Continue MSAS q4h
- OT/PT today.
- Advance diet as tolerated
3. Hypomagnesemia
- 1.9 this morning. Repleted 2g.
- Recheck Mg in PM. Replete for Mg < 2.
4. Hypophosphatemia
- check to see improvement after diet advanced
5. Hypokalemia
- 3.8 this morning. Potassium given.
- Continue to monitor and replete for K < 4
6. Anxiety/Depression
- Psych evaluation. To reassess antidepressant when further along in withdrawal.
Anticipated Discharge: 24 - 48 hours
Subjective/Interval History
-
Date of Service: December 24, 2023
Patient's condition is improved this morning. Did not experience any significant overnight events. Per nursing the patient did not have any seizures, did not require supplemental oxygen, and exhibited stable vital signs. Patient has been stable
following phenobarbital taper, and did not require Precedex during his ICU stay. Tremors have improved. Pt still mildly confused but improving. MSAS 4 this morning.
Objective Data
-
Labs:
Laboratory Results
12/24/23 12/24/23
04:00 16:00
WBC 7.7 Pending
Hgb 10.8 L Pending
Hct 30.8 L Pending
Plt Count 109 L D Pending
Sodium 138 Pending
Potassium 3.8 Pending
Chloride 107 Pending
Carbon Dioxide 19 L Pending
BUN 6 L Pending
Creatinine 0.5 L Pending
Glucose 145 H Pending
Calcium 8.6 Pending
Total Bilirubin 1.8 H
AST 40
ALT 24
Alkaline Phosphatase 55
Vital Signs:
Vital Signs
Temp Pulse Resp BP Pulse Ox
97.8 F 84 18 145/81 99
12/24/23 12:00 12/24/23 12:00 12/24/23 12:00 12/24/23 12:00 12/24/23 12:00
I&O
12/23/23 12/24/23 12/25/23
06:59 06:59 06:59
Intake Total 2047 / 2172 705 / 705
Output Total 1750 / 1750 500 / 500
Balance 297 / 422 205 / 205
Review of Systems
-
Unable to obtain full review of systems at this time due to: Other (confusion)
History Source: Patient
Respiratory: Reports No Symptoms
Cardiac: Reports No Symptoms
Abdomen/GI: Reports No Symptoms
Neuro: Reports Tremors
Physical Exam
-
General: No Apparent Distress and Other (tremulous)
HEENT: Normocephalic, Atraumatic and Other (extraocular movements intact)
Respiratory: Clear to Auscultation
Cardiac: Regular Rhythm and S1/S2
GI: Soft and Nontender
Neuro: Awake, Alert and Oriented
Psych: Confused
Data Reviewed
-
Labs: Labs Reviewed by me and Discussed with Patient
[2023-12-24] MEDS: NEUTRA-PHOS POWDER PACKET 500 MG PO (14:31)
[2023-12-24 16:38] LABS: Blood Urea Nitrogen 5 mg/dl (9-20); Calcium 8.8 mg/dl (8.4-10.2); Carbon Dioxide 21 mmol/L (22-30); Chloride 102 mmol/L (98-107); Estimated Creatinine Clearance 106 ml/min; Glucose 112 mg/dl (70-99); Magnesium 1.7 mg/dl (1.6-2.3); Potassium 3.9 mmol/L (3.5-5.1); Sodium 137 mmol/L (135-145); eGFR > 60.00
[2023-12-24 17:16] LABS: Hematocrit 33.2 % (39.0-52.0); Hemoglobin 11.8 g/dL (13.0-18.0); Mean Corp Hgb Conc. 35.5 g/dL (33.0-37.0); Mean Corpuscular Volume 87.1 fL (80.0-94.0); Mean Platelet Volume 10.2 fL (7.4-10.4); Platelet Count 130 10^3/uL (130-400); Red Blood Cell Count 3.81 10^6/uL (4.70-6.10); Red Cell Dist. Width 17.2 % (11.5-14.5); White Blood Cell Count 7.7 10^3/uL (4.8-10.8)
[2023-12-24] MEDS: LOVENOX 40 MG SC (17:27)
[2023-12-25 03:04] VITALS: BP 131/79
[2023-12-25 06:00] VITALS: BMI 25.1
[2023-12-25 07:00] VITALS: BP 141/77
[2023-12-25] MEDS: FOLVITE 1 MG PO (08:25)
[2023-12-25] MEDS: PHENOBARBITAL 97.5 MG IV (08:26)
[2023-12-25] MEDS: THIAMINE INJECTION 200 MG IV ×2 (08:27→16:36)
[2023-12-25 09:13] LABS: ALT (SGPT) 21 U/L (0-50); AST (SGOT) 28 U/L (17-59); Albumin 3.7 g/dl (3.5-5.0); Alkaline Phosphatase 61 U/L (38-126); Blood Urea Nitrogen 10 mg/dl (9-20); Calcium 8.9 mg/dl (8.4-10.2); Carbon Dioxide 23 mmol/L (22-30); Chloride 103 mmol/L (98-107); Estimated Creatinine Clearance 91 ml/min; Glucose 118 mg/dl (70-99); Magnesium 1.7 mg/dl (1.6-2.3); Potassium 3.2 mmol/L (3.5-5.1); Sodium 138 mmol/L (135-145); Total Bilirubin 1.4 mg/dl (0.2-1.3); Total Protein 6.2 g/dl (6.3-8.2); eGFR > 60.00
[2023-12-25 09:24] LABS: Hematocrit 33.8 % (39.0-52.0); Hemoglobin 11.4 g/dL (13.0-18.0); Mean Corp Hgb Conc. 33.7 g/dL (33.0-37.0); Mean Corpuscular Hgb 30.8 pg (27.0-31.0); Mean Corpuscular Volume 91.4 fL (80.0-94.0); Mean Platelet Volume 9.5 fL (7.4-10.4); Platelet Count 116 10^3/uL (130-400); Red Cell Dist. Width 17.1 % (11.5-14.5); White Blood Cell Count 6.4 10^3/uL (4.8-10.8)
[2023-12-25] MEDS: MAGNESIUM OXIDE 500 MG PO (10:28)
[2023-12-25] MEDS: KCL 40 MEQ PO (10:28)
[2023-12-25 11:00] VITALS: BP 139/83
--- NOTE | 2023-12-25 11:22 | W.PN.HOSP.TC ---
Addendum entered and electronically signed by Georgina Pritchett MD 12/25/23 19:45:
I saw and evaluated the patient independently. I reviewed the resident�s note and agree with findings and plan as documented by Dr. Nicholas.
GENERAL: well developed, well nourished, male in no apparent distress
HEENT: NC/AT--no O2 requirements
HEART: regular rate and rhythm, +S1, +S2--tachycardic
LUNGS : clear to auscultation bilaterally
ABDOM: soft, nontender, nondistended, + bowel sounds
EXT: no cyanosis, clubbing, or edema
NEUROLOGIC: tremulous, shaky improved
: condom cath in place
Acute alcohol withdrawal with impending delirium tremens--resolving--pt drinks 1 pint of vodka daily--cont MSAS-- did move to intensive care unit for higher level of care and need for possible Precedex but did not require--apprec psychiatry
consult--doubt patient will want help--continue IV thiamine and folate repletion--follow and replete magnesium and potassium
Anion Gap Metabolic Acidosis--likely due to alcoholic ketoacidosis--osmole gap normal despite ingestion of mouthwash and aftershave---follow for resolution of acidosis as DTs are treated
Anxiety / Depression--patient admits to depression--will continue sertraline--agree with psychiatry consult
tachycardia--with movement HR increases--deconditioning and WD likely--therapy recommending SNF--pt refusing
DVT Prophylaxis: SCDs
Code Status: Full
suspect pt will leave tomorrow either AMA or by d/c pending tomorrow's evaluation--cont PT/OT--PT recommending SNF--OT rec home health
Original Note:
Today's Communication/Plan
-
.
Assessment / Plan
Assessment / Plan
1. Anion Gap Metabolic Acidosis
- AGAP = 12 this morning; normal x 2 days
- Serum osmolality = 311 on admission; Calculated osmolality = 311-314; normal osmolal gap
- Alcohol quant = 58 on admission. Rest of Tox screen negative (benzo positive, given ativan on admission)
- Follow CMPs for normalization.
2. Alcoholic Ketoacidosis/Withdrawal
- B-hydroxybutyrate 0.73 on admission
- IVF/supplemental dextrose.
- Thiamine, Folate, multivitamin.
- Phenobarbital Taper with Ativan PRN for withdrawal sx.
- Transferred to ICU 2 nights ago, did not require Precedex. Pt moved to tele yesterday.
- Reassess for clinical signs.
- Last MSAS = 3. Continue MSAS q4h
- OT/PT.
- Advance diet as tolerated. Continue to monitor.
3. Hypomagnesemia
- 1.7 this morning. Repleted 2g.
- Recheck Mg in PM. Replete for Mg < 2.
4. Hypophosphatemia
- check to see improvement after diet advanced
5. Hypokalemia
- 3.2 this morning. 40 mEQ Potassium given.
- Continue to monitor and replete for K < 4
6. Anxiety/Depression
- Psych evaluation. Dr Pak in to see today. To reassess antidepressant when further along in withdrawal.
Anticipated Discharge: 24 - 48 hours
Anticipated Discharge: 24 - 48 hours
Subjective/Interval History
-
Date of Service: December 25, 2023
Pt denies acute complaints; no overnight events reported.
Objective Data
-
Labs:
Laboratory Results
12/25/23
08:46
WBC 6.4
Hgb 11.4 L
Hct 33.8 L
Plt Count 116 L
Sodium 138
Potassium 3.2 L
Chloride 103
Carbon Dioxide 23
BUN 10
Creatinine 0.7
Glucose 118 H
Calcium 8.9
Total Bilirubin 1.4 H
AST 28
ALT 21
Alkaline Phosphatase 61
Vital Signs:
Vital Signs
Temp Pulse Resp BP Pulse Ox
98 F 83 19 141/77 98
12/25/23 07:00 12/25/23 07:00 12/25/23 07:00 12/25/23 07:00 12/25/23 07:00
I&O
12/24/23 12/25/23 12/26/23
06:59 06:59 06:59
Intake Total 2046 / 2 2034
Output Total 1750 / 1750 1800 / 1800
Balance 297 / 422 235 / 235
Review of Systems
-
History Source: Patient
Constitutional: Reports No Symptoms
Respiratory: Reports No Symptoms
Cardiac: Reports No Symptoms
Abdomen/GI: Reports No Symptoms
Musculoskeletal: Reports No Symptoms
Neuro: Reports No Symptoms
Physical Exam
-
General: Well Developed, Well Nourished and No Apparent Distress
HEENT: Normocephalic and Atraumatic
Respiratory: Clear to Auscultation
Cardiac: Regular Rhythm and S1/S2
GI: Soft, Nontender, Nondistended and Normal Bowel Sounds
Genito-urinary: Other (condom cath in place draining clear yellow urine)
Skin: Warm and Dry
Neuro: Awake, Alert, AO x 3 and Other (tremors greatly improved from yesterday)
Psych: Calm
Data Reviewed
-
Labs: Labs Reviewed by me and Discussed with Patient
--- NOTE | 2023-12-25 13:48 | W.PN.UPDATE ---
Update Note
Progress Note Update
Pt seen, spoke with pt's son. 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 Pt states he is aware of the risk of alcohol withdrawal, and will seek
medical attention at an ER if symptoms return. 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 Son reports pt has been in hospitals
for alcohol withdrawal approx a dozen times, has usually signed out early, was in a rehab program once and signed out within a week.
Pt does not show signs of depression or psychosis. He denies any suicidal ideation.
Imp: Alcohol Use d/o, severe. Pt appears to have capacity for decisions, is able to express his wishes clearly and gives a rationale. He has a pattern of refusing treatment for his alcohol use, with limited insight
Rec: continue current mgt with Phenobarb taper. Discussed with son possibly facilitating pt contacting his clients to encourage him to stay until alcohol withdrawal is fully stabilized
will follow
--- NOTE | 2023-12-25 14:41 | CM ---
Patient seen at bedside with physicians. Patient eager for discharge, PT recommending SNF. Patient declined SNF, Declined VN and completed IMM signed form placed on chart. Patient and son were updated that if patient wanted to discharge he would bekah
to sign AMA per physician. CM will continue to follow for discharge planning needs.
Plan; SNF vs home with VN
[2023-12-25 15:00] VITALS: BP 140/79
[2023-12-25] MEDS: LUMINAL 64.8 MG PO ×2 (16:35→22:09)
[2023-12-25] MEDS: LOVENOX 40 MG SC (17:09)
[2023-12-25 19:50] VITALS: BP 156/89
[2023-12-25 22:44] VITALS: BP 145/64
[2023-12-26] MEDS: THIAMINE INJECTION IV (00:12)
[2023-12-26] MEDS: ATIVAN 1 MG PO (00:46)
--- NOTE | 2023-12-26 01:40 | VATNOTE ---
CALLED TO RS IV D/T PAIN IN CURRENT IV SITE. IV IN LFA APPEARS RED, IS TENDER AND HAS A PALPABLE [id number] CORD. AREA MARKERED. PCN MADE AWARE AND WARM COMPRESSES TO BE APPLIED. VAT TO MONITOR.
[2023-12-26] MEDS: THIAMINE INJECTION 200 MG IV (01:41)
[2023-12-26 03:17] VITALS: BP 147/78
[2023-12-26 06:00] VITALS: BMI 25.6
[2023-12-26 07:00] VITALS: BP 134/79
[2023-12-26 08:02] LABS: Hemoglobin 10.7 g/dL (13.0-18.0); Mean Corp Hgb Conc. 34.5 g/dL (33.0-37.0); Mean Corpuscular Hgb 31.6 pg (27.0-31.0); Mean Corpuscular Volume 91.4 fL (80.0-94.0); Mean Platelet Volume 10.3 fL (7.4-10.4); Platelet Count 115 10^3/uL (130-400); Red Blood Cell Count 3.39 10^6/uL (4.70-6.10); Red Cell Dist. Width 17.1 % (11.5-14.5); White Blood Cell Count 6.4 10^3/uL (4.8-10.8)
[2023-12-26] MEDS: LUMINAL 64.8 MG PO ×2 (08:14→15:33)
[2023-12-26] MEDS: VITAMIN B1 100 MG PO (08:14)
[2023-12-26] MEDS: FOLVITE 1 MG PO (08:14)
[2023-12-26 09:32] LABS: ALT (SGPT) 18 U/L (0-50); AST (SGOT) 23 U/L (17-59); Albumin 3.4 g/dl (3.5-5.0); Alkaline Phosphatase 64 U/L (38-126); Blood Urea Nitrogen 13 mg/dl (9-20); Calcium 8.7 mg/dl (8.4-10.2); Carbon Dioxide 22 mmol/L (22-30); Chloride 105 mmol/L (98-107); Estimated Creatinine Clearance 106 ml/min; Glucose 97 mg/dl (70-99); Magnesium 1.7 mg/dl (1.6-2.3); Potassium 3.5 mmol/L (3.5-5.1); Sodium 141 mmol/L (135-145); Total Bilirubin 0.8 mg/dl (0.2-1.3); eGFR > 60.00
--- NOTE | 2023-12-26 09:37 | W.PN.HOSP.TC ---
Addendum entered and electronically signed by Georgina Pritchett MD 12/26/23 13:10:
I saw and evaluated the patient independently. I reviewed the resident�s note and agree with findings and plan as documented by Dr. Nicholas.
GENERAL: well developed, well nourished, male in no apparent distress
HEENT: NC/AT--no O2 requirements
HEART: regular rate and rhythm, +S1, +S2--tachycardic
LUNGS : clear to auscultation bilaterally
ABDOM: soft, nontender, nondistended, + bowel sounds
EXT: no cyanosis, clubbing, or edema
NEUROLOGIC: tremulous, shaky improved
: condom cath in place
Acute alcohol withdrawal with impending delirium tremens--resolving--pt drinks 1 pint of vodka daily--cont MSAS-- did move to intensive care unit for higher level of care and need for possible Precedex but did not require--apprec psychiatry
consult--doubt patient will want help--continue thiamine and folate repletion--follow and replete magnesium and potassium
Anion Gap Metabolic Acidosis--likely due to alcoholic ketoacidosis--osmole gap normal despite ingestion of mouthwash and aftershave---follow for resolution of acidosis as DTs are treated
Anxiety / Depression--patient admits to depression--will continue sertraline--agree with psychiatry consult
tachycardia--with movement HR increases--deconditioning and WD likely--therapy recommending SNF, now ok for home with walker
DVT Prophylaxis: SCDs
Code Status: Full
OK for d/c
Original Note:
Today's Communication/Plan
-
.
Assessment / Plan
Assessment / Plan
1. Anion Gap Metabolic Acidosis
- AGAP = 14 this morning; normal x 3 days
- Serum osmolality = 311 on admission; Calculated osmolality = 311-314; normal osmolal gap
- Alcohol quant = 58 on admission. Rest of Tox screen negative (benzo positive, given ativan on admission)
2. Alcoholic Ketoacidosis/Withdrawal
- B-hydroxybutyrate 0.73 on admission
- IVF/supplemental dextrose.
- Thiamine, Folate, multivitamin.
- Phenobarbital Taper with Ativan PRN for withdrawal sx.
- Transferred to ICU 2 nights ago, did not require Precedex. Pt moved to tele yesterday.
- Reassess for clinical signs.
- Last MSAS = 3
- OT/PT seen today; wide based gait; walker recommended for discharge.
- Pt declines EtOH use treatment/rehab
3. Hypomagnesemia
- 1.7 this morning. Replete 4g prior to d/c.
4. Hypophosphatemia
- check to see improvement after diet advanced
5. Hypokalemia
- 3.5 this morning, WNL
6. Anxiety/Depression
- Psych evaluation: intact decision making capacity; Has pattern for refusing treatment for EtOH use.
Anticipated Discharge: 24 - 48 hours
Anticipated Discharge: Today
Subjective/Interval History
-
Date of Service: December 26, 2023
Pt denies acute events overnight. Denies CP, SOB, Dizziness, abdominal pain, n/v/d, leg swelling. Pt states he wants to go home.
Objective Data
-
Labs:
Laboratory Results
12/26/23
07:45
WBC 6.4
Hgb 10.7 L
Hct 31.0 L
Plt Count 115 L
Sodium 141
Potassium 3.5
Chloride 105
Carbon Dioxide 22
BUN 13
Creatinine 0.6 L
Glucose 97
Calcium 8.7
Total Bilirubin 0.8
AST 23
ALT 18
Alkaline Phosphatase 64
Vital Signs:
Vital Signs
Temp Pulse Resp BP Pulse Ox
97.8 F 75 20 134/79 93
12/26/23 07:00 12/26/23 07:00 12/26/23 07:00 12/26/23 07:00 12/26/23 07:00
I&O
12/25/23 12/26/23 12/27/23
06:59 06:59 06:59
Intake Total 2034 / 2034 1350 / 1350
Output Total 1800 / 1800 50 / 50
Balance 235 / 235 1300 / 1300
Review of Systems
-
History Source: Patient
Constitutional: Reports No Symptoms
Respiratory: Reports No Symptoms
Cardiac: Reports No Symptoms
Abdomen/GI: Reports No Symptoms
Musculoskeletal: Reports No Symptoms
Physical Exam
-
General: Well Nourished and No Apparent Distress
HEENT: Normocephalic, Atraumatic and Other (anicteric)
Respiratory: Clear to Auscultation
Cardiac: Regular Rhythm and S1/S2
GI: Soft, Nontender and Nondistended
Musculoskeletal: No Cyanosis and No Edema
Skin: Warm and Dry
Neuro: Awake, Alert and AO x 3
Psych: Calm
Data Reviewed
-
Labs: Labs Reviewed by me and Discussed with Patient
[2023-12-26] MEDS: MAGNESIUM SULFATE 100 IV (10:14)
--- NOTE | 2023-12-26 10:39 | VATNOTE ---
Left forearm phlebitic area reassessed. Remains unchanged with a 7ozv3ic palpable cord. Firm and reddened but no longer tender. Warm compress applied. Primary care RN made aware. VAT will continue to follow.
[2023-12-26 10:45] VITALS: BP 135/82; BP 149/91; PULSE 89
[2023-12-26 11:00] VITALS: BP 138/77
--- NOTE | 2023-12-26 15:19 | CM ---
Patient seen at bedside with physicians earlier today. Patient requesting discharge, PT/OT assessment completed recommending walker and VN. Patient declined VN or [facility] supports. CM will continue to follow for discharge planning needs.
Plan; home with walker and family supports
--- NOTE | 2023-12-26 16:41 | W.DCSUMMARY ---
Addendum entered and electronically signed by Georgina Pritchett MD 12/26/23 17:27:
Read, reviewed, and agree. See same day progress note for additional details. Time spent coordinating care, DC planning, review of DC plan of care with resident, transition of care, review of records in EMR, med rec, consults, notes, d/w
consultants, nursing, family, and CM = 35 minutes.
Original Note:
Discharge Summary
Discharge Data
Date of Admission: 12/23/23
Date of Discharge: 12/26/23
-
Pending Results: No
Hospital Course
Mr. Freire is a 73-year-old male with a past medical history of alcohol use disorder, hypercholesterolemia, and diverticulitis who presented to the emergency department on December 23, 2023 for concern of alcohol withdrawal. Patient who endorsed that
he had been struggling with alcohol abuse decided to stop drinking 3 days prior to arrival. He states that he did not have any alcohol during that 3-day period. However, this led to him having trouble sleeping. The patient decided to drink
mouthwash and aftershave. The patient began to be worried about having done this and decided to come to the emergency room on his own volition. In the emergency room he admitted to having a a lot of tremulousness, nausea, and anxiousness. The
patient noted that he had not been eating and having having difficulty tolerating food and liquid by mouth. He denied chest pain, difficulty breathing, fever, suicidal ideation, homicidal ideation, vomiting, or hallucinations. The patient was
tachycardic, appeared anxious, and was tremulous. The patient's CIWA score was 20 indicating acute alcohol withdrawal. Laboratory analysis was obtained and thiamine, folate, IV fluids were administered. IV benzodiazepines were also administered.
Laboratory analysis showed a metabolic acidosis with a anion gap of 27 but the patient's osmolar gap was normal. His alcohol quantification was 58, and beta hydroxybutyrate level was 0.73. The patient was admitted to [facility] on December
2023 for acute alcohol withdrawal/ketoacidosis.
The patient was admitted to the IMU for further evaluation and treatment. He was given IV fluids, supplemental dextrose, thiamine, folate, multivitamins, and a phenobarbital taper. The patient was also subjected to MSAS checks every 4 hours. The
patient's initial MSAS score was 8 on the morning after his admission, however, over the course of the day increased to 12. The patient had been receiving Ativan every hour and started having confusion, paranoia, delusions, and visual
hallucinations. The patient was subsequently transferred to the ICU for [id number] monitoring and potential use of Precedex. In the ICU, the patient's clinical status improved over the course of the next 24 hours. His MSAS score improved 2.
The patient was subsequently downgraded to telemetry for further observation.
Over the course of the next 2 days, the patient's clinical condition continued to improve. His electrolytes continue to be monitored and repleted as needed. Although the patient did not finish his phenobarbital taper he expressed multiple times a
need to return home for work. Psychiatry was consulted who felt the patient had an intact decision-making capacity, and realized that he had a pattern for refusing treatment for alcohol use. Discharged to long term facility was suggested,
however the patient vehemently declined this option. The patient was offered visiting nurse service upon discharge, however, the patient also declined this. The patient was seen by physical therapy and Occupational Therapy for evaluation prior to
his discharge, who felt that it was safe to discharge the patient home with a walker. There were also initial concerns regarding tachycardia during activity, however this is likely due to deconditioning. The patient was discharged to home on
December 26, 2023. Patient was advised to follow-up with his primary care provider in less than 1 week.
Discharge Plan
-
Patient Disposition: Home (Routine Discharge)
Discharge Diagnosis/Procedures: Alcoholic Ketoacidosis/Withdrawal
Electrolyte Derangements
Condition: Fair
Diet: Regular
Activity: As tolerated
Activity Restrictions/Additional Instructions:
Walker provided for mobility.
Referrals:
Ehsan Yi MD [Family Provider] - in less than 1 week
Prescriptions:
New
thiamine HCl (vitamin B1) 100 mg Tablet
100 mg PO 1XD Qty: 30 0RF
folic acid 1 mg Tablet
1 mg PO DAILY Qty: 30 0RF
Continued
aspirin 81 MG tablet,delayed release (DR/EC)
81 mg PO DAILY
multivitamin with folic acid [Tab-A-Alexa] 1 TABLET tablet
1 tab PO DAILY
Patient Comments:
simvastatin [Zocor] 40 mg Tablet
40 mg PO DAILY
Discharge Orders:
Discharge Patient (As Directed); Ordered 12/26/23
Ordered By: Chago Nicholas
Discharge Date and Time
Print Language: KHMER
[2023-12-26 17:07] VITALS: BP 144/81
== END 2023-12-26 17:30 | disposition home or self-care (01) | DRG 897 ==
LOC: 4 WEST ACU 06:17
PROVIDERS: ADMITTING PHYSICIAN Hospitalist; ATTENDING PHYSICIAN Internal Medicine; CONSULT PHYSICIAN Internal Medicine Critical Care Medicine; EMERGENCY PHYSICIAN Student in an Organized Health Care Education/Training Program; FAMILY PHYSICIAN Internal Medicine; OTHER PHYSICIAN Psychiatry & Neurology Psychiatry
DX: F10.131 Alcohol abuse with withdrawal delirium (principal); E87.29 Other acidosis; F32.A Depression, unspecified; E83.39 Other disorders of phosphorus metabolism; E87.6 Hypokalemia; E83.42 Hypomagnesemia; F17.290 Nicotine dependence, other tobacco product, uncomplicated; E78.00 Pure hypercholesterolemia, unspecified; F41.9 Anxiety disorder, unspecified; K21.9 Gastro-esophageal reflux disease without esophagitis; Z79.82 Long term (current) use of aspirin; Z79.899 Other long term (current) drug therapy; Z87.19 Personal history of other diseases of the digestive system; Z86.008 Personal history of in-situ neoplasm of other site
CPT/HCPCS: 80048; 80053; 80306; 80307; 81003; 81015; 82010; 82077; 82248; 82805; 83735; 83930; 84100; 85025; 85027; 85610; 93005; 96361; 96374; 96375; 96376; 97116; 97162; 97166; 97535; 99285

== ENCOUNTER → 2024-05-04 07:39 | Outpatient (REF) | payer OTHER, SELFPAY | LOC: RAD 07:39 | PROVIDERS: ATTENDING PHYSICIAN Internal Medicine Cardiovascular Disease; FAMILY PHYSICIAN Internal Medicine | DX: I71.21 Aneurysm of the ascending aorta, without rupture (principal) | CPT/HCPCS: 71275; 74174; Q9967 ==

== ENCOUNTER 2025-01-20 05:51 | Day surgery (SDC) | payer OTHER, SELFPAY ==
[2025-01-14 08:58] VITALS: BMI 28.1
[2025-01-14 11:33] LABS: Hematocrit 40.8 % (39.0-52.0); Hemoglobin 14.1 g/dL (13.0-18.0); Mean Corp Hgb Conc. 34.6 g/dL (33.0-37.0); Mean Corpuscular Volume 96.0 fL (80.0-94.0); Platelet Count 221 10^3/uL (130-400); Red Cell Dist. Width 14.0 % (11.5-14.5)
[2025-01-14 12:10] LABS: Blood Urea Nitrogen 12 mg/dl (9-20); Calcium 9.1 mg/dl (8.4-10.2); Carbon Dioxide 25 mmol/L (22-30); Chloride 103 mmol/L (98-107); Estimated Creatinine Clearance 80 ml/min; Glucose 98 mg/dl (70-99); Potassium 4.9 mmol/L (3.5-5.1); Sodium 136 mmol/L (135-145); eGFR > 60.00
--- NOTE | 2025-01-18 09:59 | PTCARENOTE ---
Abnormal ECG done 01/14/25 showing possible lateral infarct age undetermined, this finding was also present on previous ECG done 12/23/2023.
[2025-01-20 06:21] VITALS: BMI 28.1
[2025-01-20 06:30] VITALS: BP 130/68
[2025-01-20] MEDS: NEBCIN 480 MG/100 ML ENEMA 1 BOTTLE RECTAL (06:32)
[2025-01-20] MEDS: NORMOSOL-R/PLASMALYTE-A 1000 IV (06:33)
[2025-01-20 07:54] VITALS: BP 131/71
[2025-01-20 09:45] VITALS: BP 159/80
== END 2025-01-20 10:10 | disposition home or self-care (01) ==
LOC: SDS 05:51
PROVIDERS: ATTENDING PHYSICIAN Specialist; FAMILY PHYSICIAN Internal Medicine
DX: C61 Malignant neoplasm of prostate (principal); R97.20 Elevated prostate specific antigen [PSA]
CPT/HCPCS: 55700; 36415; 76998; 80048; 81003; 81015; 85027; 88305; 88344; 93005

== ENCOUNTER 2025-01-20 17:31 | Emergency (ER) | payer OTHER, SELFPAY ==
[2025-01-20 17:34] VITALS: BP 159/80
[2025-01-20 18:24] VITALS: BP 113/93; BMI 29.3
--- NOTE | 2025-01-20 18:38 | ED.GENMED ---
History of Present Illness
<Mark Amaro DO - Last Filed: 01/20/25 18:39>
General
Chief Complaint: Post Operative Problem(s)
Time Seen by Provider: 01/20/25 18:01
<Hernandez Lacey PA-C - Last Filed: 01/20/25 19:11>
History of Present Illness
History of Present Illness:
74-year-old male presents to the emergency department for evaluation of abdominal pain and urinary retention after undergoing a prostate biopsy earlier this morning. He has not urinated in at least 8 hours.
Past History
<Mark Amaro DO - Last Filed: 01/20/25 18:39>
Past History
ED Past Medical History: Hypercholesterolemia and Other (Diverticulitis)
ED Past Surgical History: Other (Hernia repair)
Social History
Tobacco: Non-smoker
Alcohol: Daily
Drug: None
Personal:
Living: with family
Employment: Employed
Family History
Family History: Other (kidney stones)
Review of Systems
<Hernandez Lacey PA-C - Last Filed: 01/20/25 19:11>
Review of Systems
Allergies reviewed?: Yes
All Other Systems: ROS reviewed and negative except as documented in HPI and ROS
Phy Exam
<Hernandez Lacey PA-C - Last Filed: 01/20/25 19:11>
Physical Exam
Physical Exam:
GEN: In acute distress, writhing in pain
HEENT: Oral mucosa moist, no scleral icterus
Cardiac: Regular rate
Lung: No respiratory distress, no tachypnea
Abdomen: Distended suprapubic space
MSK: No gross deformity or injuries
Skin: Good color, no pallor or jaundice, no rashes
Neuro: AO x3, moves all extremities freely
Psych: Calm, cooperative
Course
<Mark Amaro DO - Last Filed: 01/20/25 18:39>
Orders/Labs/Results
Orders:
Orders
01/20/25 18:40
Urinalysis Reflex To Culture Urgent
Date Specimen was Collected: 01/20/25
Time Specimen was Collected: 18:33
Urine Microscopic Reflex Cult Urgent
Abnormal Lab Results
01/20/25
18:40
Ur Occult Blood Reflex 2+ A
(Negative)
Urine RBC 7-10 A /HPF
(0-2)
Urine Bacteria (Reflex) Few A
(Negative)
Vital Signs
Initial and Last Documented VS:
Initial Vital Signs
Temp Pulse Resp BP Pulse Ox
97.5 F 94 28 159/80 98
01/20/25 17:34 01/20/25 17:34 01/20/25 17:34 01/20/25 17:34 01/20/25 17:34
Last Documented Vital Signs
Temp Pulse Resp BP Pulse Ox
97.5 F 94 28 113/93 98
01/20/25 17:34 01/20/25 17:34 01/20/25 17:34 01/20/25 18:24 01/20/25 18:39
<Hernandez Lacey PA-C - Last Filed: 01/20/25 19:11>
Orders/Labs/Results
Orders:
Orders
01/20/25 18:40
Urinalysis Reflex To Culture Urgent
Date Specimen was Collected: 01/20/25
Time Specimen was Collected: 18:33
Urine Microscopic Reflex Cult Urgent
Abnormal Lab Results
01/20/25
18:40
Ur Occult Blood Reflex 2+ A
(Negative)
Urine RBC 7-10 A /HPF
(0-2)
Urine Bacteria (Reflex) Few A
(Negative)
Vital Signs
Initial and Last Documented VS:
Initial Vital Signs
Temp Pulse Resp BP Pulse Ox
97.5 F 94 28 159/80 98
01/20/25 17:34 01/20/25 17:34 01/20/25 17:34 01/20/25 17:34 01/20/25 17:34
Last Documented Vital Signs
Temp Pulse Resp BP Pulse Ox
97.5 F 94 28 113/93 98
01/20/25 17:34 01/20/25 17:34 01/20/25 17:34 01/20/25 18:24 01/20/25 18:39
<Hernandez Lacey PA-C - Last Filed: 01/20/25 19:11>
MDM/Problems Addressed
MDM/Problems Addressed:
Mosher placed with rapid improvement in symptoms, will cover with empiric antibiotics given biopsy being done this AM and new Mosher placement
<Mark Amaro DO - Last Filed: 01/20/25 18:39>
*Pulse Oximetry
SaO2: 98
Oxygen Mode of Delivery: Room air
<Hernandez Lacey PA-C - Last Filed: 01/20/25 19:11>
*Pulse Oximetry
Patient hypoxic: no
*Critical Care Note
Total Time (30-74mins, 75-104mins- exclusive of procedures): Not Applicable
ED Attending Note
<Mark Amaro DO - Last Filed: 01/20/25 18:39>
ED Attending Note
Patient seen and examined by attending physician: Yes
I performed the substantive portion of visit, reviewed & personally made and approve the management plan that is documented in note by myself or LIDA.: Yes
ED Attending Note:
Seen with PA examined independently, acute urinary retention after prostate biopsy looks more comfortable after catheter placed
-
Portions of this chart may have been created with voice recognition software.� Occasional wrong word or��sound alike� substitutions may have occurred due to the inherent limitations of voice recognition software.
Discharge Plan
Departure
Patient Disposition: Home (Routine Discharge)
Date of Disposition: 01/20/25
Time of Disposition: 18:41
Patient with high blood pressure during this ER visit?: No
Discharge Problem:
Acute urinary retention
Instructions: Urinary retention (DC)
Prescriptions:
New
cephalexin 500 mg capsule
500 mg PO TID 5 Days Qty: 15 0RF
tamsulosin 0.4 mg capsule
0.4 mg PO HS Qty: 10 0RF
No Action
aspirin 81 MG tablet,delayed release (DR/EC)
81 mg PO DAILY
multivitamin with folic acid [Tab-A-Alexa] 1 TABLET tablet
1 tab PO DAILY
Patient Comments:
simvastatin [Zocor] 40 mg Tablet
40 mg PO DAILY
omeprazole 20 mg Tablet,Delayed Release (Dr/Ec)
20 mg PO DAILY
trazodone 100 mg Tablet
100 mg PO HS
levofloxacin 500 mg Tablet
500 mg PO Daily
Referrals:
Ehsan Yi MD [Family Provider, Internal Medicine]
Activity Restrictions/Additional Instructions:
Follow up with your urologist in 5-7 days
Interventions
Interventions:
*Risk Screen - Suicide Last Done: 01/20/25 17:35
*General Assessment Last Done: 01/20/25 18:28
*Neglect/Abuse Screening Last Done: 01/20/25 17:35
*ED COVID-19 Vaccine History Last Done: 01/20/25 18:28
*ED Influenza Vaccine History Last Done: 01/20/25 18:28
[facility] Fall Risk Assessment Tool Last Done: 01/20/25 18:28
ED-Skin Assessment Last Done: 01/20/25 18:28
Discharge Date and Time
Print Language: IVORIAN
[2025-01-20 18:49] LABS: Urine Character Clear (Clear)
[2025-01-20 18:54] LABS: Urine Squamous Cell 0-2 /LPF (Few)
[2025-01-20 18:55] LABS: Urine White Cell 0-2 /HPF (0-5)
== END 2025-01-20 19:12 | disposition home or self-care (01) ==
LOC: EMR 17:31
PROVIDERS: Physician Assistant; EMERGENCY PHYSICIAN Emergency Medicine; FAMILY PHYSICIAN Internal Medicine
DX: R33.9 Retention of urine, unspecified (principal); E78.00 Pure hypercholesterolemia, unspecified; Z79.82 Long term (current) use of aspirin
CPT/HCPCS: 99283; 51702; 81003; 81015

== ENCOUNTER → 2025-01-28 12:50 | Outpatient (REF) | payer OTHER, SELFPAY | LOC: PET 12:50 | PROVIDERS: ATTENDING PHYSICIAN Specialist | DX: C61 Malignant neoplasm of prostate (principal) | CPT/HCPCS: 78815; A9595 ==